=== PATIENT | female | born 1985 | race Native Hawaiian/Other Pacific Islander ===

== ENCOUNTER 2022-09-13 11:06 | Emergency (ER) | payer OTHER, SELFPAY ==
[2022-09-13 11:10] VITALS: BP 140/83; PULSE 72; RESP 18; TEMP 36.6; O2SAT 97; BMI 53.1
--- NOTE | 2022-09-13 11:25 | ED.UPPEXIN ---
HPI - Extremity Injury (Upper) General Chief Complaint: Extremity Injury, Upper Stated Complaint: cut finger open bleeding Time Seen by Provider: 09/13/22 11:18 Source: patient Mode of arrival: Ambulatory History of Present Illness HPI narrative: Patient is a 37-year-old healthy female who presents today with left thumb laceration. She reports that she was scraping goo off in the shower when it slipped and cut her thumb. No numbness tingling or weakness. She is able flex and extend without any difficulty. She is unsure when her last tetanus was. Related Data Allergies Allergy/AdvReac Type Severity Reaction Status Date / Time No Known Drug Allergies Allergy Verified 09/13/22 11:13 Review of Systems Review of Systems ROS Unobtainable: All systems reviewed & are unremarkable except as noted in HPI and below Patient History Social History Smoking Status: Current some day smoker Smoking Status: Current some day smoker tobacco type: cigarettes alcohol intake frequency: 0-2 drinks per day Substance Use Type: does not use Exam Initial Vital Signs Initial Vital Signs: Vital Signs Temperature 97.8 F 09/13/22 11:10 Pulse Rate 72 09/13/22 11:10 Respiratory Rate 18 09/13/22 11:10 Blood Pressure 140/83 09/13/22 11:10 Pulse Oximetry 97 09/13/22 11:10 Oxygen Delivery Method Room Air 09/13/22 11:10 GENERAL: Well-appearing, well-nourished and in no acute distress. CARDIOVASCULAR: peripheral pulses in tact, cap refill <2 sec RESPIRATORY: No respiratory distress, speaks in full sentences without difficulty EXTREMITIES: Normal range of motion, no clubbing or edema. Neurovascularly intact Left hand able to flex and extend at the make an okay sign but up against resistance sensation between 1st and 2nd digit intact NEUROLOGICAL: Cranial nerves II through XII grossly intact. Normal gait and speech. SKIN: 2 cm laceration over dorsal side of left thumb at MCP Procedures Laceration Repair Laceration 1: Site: hand (thumb) Side (If applicable): left Size (cm): 2 Description: linear Depth: simple, single layer Local Anesthetic: lidocaine 2% Amount of anesthesia used (mL): 2 Pre-repair: wound explored, irrigated extensively and deep structures intact Skin layer closed with: nylon Skin layer suture size: 5-0 Number of sutures: 3 Course Orders Ordered: Discontinued Medications Diphtheria/Tetanus/Acell Pertussis (Tet,Diph,Pertuss(Acell),Vac/Pf 0.5 Ml Syringe) 0.5 ml IM .ONCE ONE Stop: 09/13/22 11:31 Last Admin: 09/13/22 11:33 Dose: 0.5 ml Documented By: ANTHONY Lidocaine HCl (Lidocaine 2% Inj Mdv 20ml) 1 ml SUBCUT NOW ONE Stop: 09/13/22 11:26 Last Admin: 09/13/22 11:33 Dose: Not Given Documented By: ANTHONY Lidocaine HCl (Lidocaine 2% Inj Sdv 5ml) 1 ml SUBCUT NOW ONE Stop: 09/13/22 11:31 Last Admin: 09/13/22 11:33 Dose: 1 ml Documented By: ANTHONY Vital Signs Vital signs: Vital Signs - 8 hr 09/13/22 11:10 Temperature 97.8 F Pulse Rate 72 Respiratory Rate 18 Blood Pressure 140/83 Pulse Oximetry 97 Oxygen Delivery Method Room Air MDM - Extremity Injury (Upper) MDM Narrative Medical decision making narrative: Patient is a healthy 37-year-old female presenting today with left hand laceration. There is no tendon involvement full range of motion. Easily repaired with 3 sutures. Instructions given, no need for antibiotics Discharge Plan Departure Patient Disposition: Home Clinical Impression: Laceration of finger of left hand Instructions: DI for Laceration Repair -- Simple Activity Restrictions/Additional Instructions: *You have been diagnosed with left hand laceration *What to do: Have sutures removed in about 5-7 days. Keep hand clean and dry with soap and water. No soaking in water but leaving is encouraged. Apply antibiotic ointment 1-2 times daily. May take Tylenol or ibuprofen as directed if needed for [id number] pain *Continue to take medications as directed *Follow up with your primary care provider in 2-3 days or call [phone] *Return to ER if you should have increased redness swelling or any new, worsening or concerning symptoms Referrals: Misruth,Doctor, MD [Primary Care Provider] - Stand Alone Forms: Patient Portal/API
[2022-09-13] MEDS: LIDOCAINE 2% INJ SDV 5ML 1 ML SUBCUT (11:33)
[2022-09-13] MEDS: TET,DIPH,PERTUSS(ACELL),VAC/PF 0.5 ML SYRINGE IM (11:33)
--- NOTE | 2022-09-13 11:35 | PC.NURSE ---
Pressure dressing applied in triage, bleeding controlled.
== END 2022-09-13 11:53 | disposition home or self-care (01) ==
PROVIDERS: Emergency Provider Emergency Medicine
DX: S61.012A Laceration without foreign body of left thumb without damage to nail, initial encounter (principal); W26.9XXA Contact with unspecified sharp object(s), initial encounter; Z23 Encounter for immunization
CPT/HCPCS: 12001; 90471; 99283; 90715